=== PATIENT | female | born 1990 | race Caucasian/White ===

== ENCOUNTER 2017-09-21 18:31 | Outpatient (CLI) | payer OTHER | END 2017-09-21 22:35 | disposition left against medical advice (07) | LOC: OBT 18:31 → L-D 18:33 → OBT 22:35 | DX: O36.8130 Decreased fetal movements, third trimester, not applicable or unspecified (principal); O99.213 Obesity complicating pregnancy, third trimester; E66.01 Morbid (severe) obesity due to excess calories; Z53.21 Procedure and treatment not carried out due to patient leaving prior to being seen by health care provider; Z3A.39 39 weeks gestation of pregnancy | CPT/HCPCS: 76815; 76818 ==

== ENCOUNTER 2017-09-23 20:23 | Outpatient (CLI) | payer OTHER ==
[2017-09-23] MEDS: LACTATED RINGER'S 1,000 ML IV (22:00)
[2017-09-23] MEDS ORDERED: LACTATED RINGER'S 1,000 ML IV (23:00)
== END 2017-09-24 00:19 | disposition home or self-care (01) ==
LOC: OBT 20:23 → L-D 20:24 → NST 20:37 → L-D 20:38
DX: O62.9 Abnormality of forces of labor, unspecified (principal); Z3A.39 39 weeks gestation of pregnancy
CPT/HCPCS: 36415; 76818; 96360; 96361

== ENCOUNTER 2017-09-26 14:25 | Outpatient (CLI) | payer OTHER | END 2017-09-26 16:40 | disposition home or self-care (01) | LOC: OBT 14:25 → L-D 14:26 → OBT 16:40 | DX: O62.9 Abnormality of forces of labor, unspecified (principal); Z3A.40 40 weeks gestation of pregnancy | CPT/HCPCS: 76815; 76818 ==

== ENCOUNTER 2017-10-03 13:33 | Inpatient (IN) | payer OTHER ==
[2017-10-03] MEDS: LACTATED RINGER'S 1,000 ML IV ×2 (16:29→22:58)
[2017-10-03] MEDS ORDERED: OXYTOCIN 30 UNITS/LR 500 ML IV (16:30)
[2017-10-03] MEDS ORDERED: CARBOPROST 250 MCG INJ IM (16:30)
[2017-10-03] MEDS ORDERED: BUTORPHANOL 2 MG INJ IV ×2 (16:30)
[2017-10-03] MEDS ORDERED: MISOPROSTOL 200 MCG TAB PR (16:30)
[2017-10-03] MEDS ORDERED: METHYLERGONOVINE 0.2 MG INJ IM (16:30)
[2017-10-03] MEDS ORDERED: LIDOCAINE 1% (MPF) 30 ML INJ INJ (16:30)
[2017-10-03 17:30] LABS: ADD MAN DIFF? NO
[2017-10-03 17:32] LABS: BASOPHIL # 0.1 10^3/ul (0.0-0.1); BASOPHILS % 0.5 % (0.0-2.0); EOSINOPHILS # 0.2 10^3/ul (0.0-0.5); EOSINOPHILS % 1.8 % (0.0-7.0); HEMATOCRIT 34.6 % (37.0-47.0); HEMOGLOBIN 11.2 g/dl (12.0-16.0); LYMPHOCYTES # 1.3 10^3/ul (0.8-2.9); LYMPHOCYTES % 11.4 % (15.0-51.0); MEAN CORPUSCULAR HEMOGLOBIN 26.5 pg (29.0-33.0); MEAN CORPUSCULAR HGB CONC 32.4 g/dl (32.0-37.0); MEAN CORPUSCULAR VOLUME 81.8 fl (82.0-101.0); MEAN PLATELET VOLUME 10.1 fl (7.4-10.4); MONOCYTE # 0.8 10^3/ul (0.3-0.9); MONOCYTES % 6.7 % (0.0-11.0); NEUTROPHIL # 9.1 10^3/ul (1.6-7.5); NEUTROPHILS % 78.7 % (39.0-77.0); PLATELET COUNT 272 10^3/UL (140-415); RED BLOOD COUNT 4.23 10^6/ul (4.20-5.40); RED CELL DISTRIBUTION WIDTH 14.3 % (11.5-14.5)
[2017-10-03 17:32] LABS: WHITE BLOOD COUNT 11.6 10^3/ul (4.8-10.8)
[2017-10-03 18:09] LABS: INR 0.93; PROTIME 12.5 Sec (11.9-14.9)
[2017-10-03 18:10] LABS: PARTIAL THROMBOPLASTIN TIME 29.2 Sec (25.0-35.0)
[2017-10-03] MEDS: DINOPROSTONE 10 MG VAG SUPP VAG (19:54)
[2017-10-03] MEDS ORDERED: OXYCODONE/ACETAMINOPHEN (5/325) TAB PO (20:30)
[2017-10-03] MEDS ORDERED: IBUPROFEN 600 MG TAB PO (20:30)
[2017-10-03 20:53] LABS: HEPATITIS B SURFACE ANTIGEN NEGATIVE (NEGATIVE)
[2017-10-04] MEDS ORDERED: FENTAnyl 2MCG/ML-ROPIV 0.2% 100 ML (00:10)
[2017-10-04] MEDS: LACTATED RINGER'S 1,000 ML IV (00:53)
[2017-10-04] MEDS ORDERED: DIPHENHYDRAMINE 50 MG INJ IV (01:00)
[2017-10-04] MEDS ORDERED: NALOXONE (0.4 MG/ML) INJ IV (01:00)
[2017-10-04] MEDS: FENTAnyl 2MCG/ML-ROPIV 0.2% 100 ML BAG EPI (04:26)
[2017-10-04] MEDS: ONDANSETRON 4 MG INJ IV (04:29)
[2017-10-04] MEDS: OXYTOCIN 30 UNITS/LR 500 ML IV ×4 (06:14→21:35)
[2017-10-04] MEDS ORDERED: ACETAMINOPHEN 325 MG TAB PO ×2 (10:00→22:00)
[2017-10-04] MEDS ORDERED: HYDROCODONE/APAP (5/325) TAB PO ×4 (10:00→22:00)
[2017-10-04] MEDS ORDERED: DIBUCAINE 1% 30 GM OINT PR ×2 (10:00→22:00)
[2017-10-04] MEDS: OXYCODONE/ASPIRIN (4.88/325) TAB PO ×2 (10:51→14:05)
[2017-10-04] MEDS: LANOLIN 7 GM TUBE TOP (10:52)
[2017-10-04] MEDS: BENZOCAINE 20% 56 ML SPRAY TOP (10:52)
[2017-10-04] MEDS: WITCH HAZEL/GLYCERIN PAD PR (10:52)
[2017-10-04] MEDS: IBUPROFEN 600 MG TAB PO ×3 (11:36→23:44)
[2017-10-04] MEDS: SENNA/DOCUSATE NA (8.6MG/50MG) TAB PO (20:55)
[2017-10-04] MEDS ORDERED: ONDANSETRON 4 MG INJ IV (22:00)
[2017-10-04] MEDS ORDERED: WITCH HAZEL/GLYCERIN PAD PR (22:00)
[2017-10-04] MEDS ORDERED: BENZOCAINE 20% 56 ML SPRAY TOP (22:00)
[2017-10-04] MEDS ORDERED: OXYCODONE/ASPIRIN (4.88/325) TAB PO ×2 (22:00)
[2017-10-04] MEDS ORDERED: LANOLIN 7 GM TUBE TOP (22:00)
[2017-10-04 23:24] LABS: RAPID PLASMA REAGIN NONREACTIVE (NR)
[2017-10-05] MEDS: IBUPROFEN 600 MG TAB PO ×3 (06:25→17:39)
[2017-10-05 09:42] LABS: ADD MAN DIFF? NO
[2017-10-05 09:47] LABS: BASOPHILS % 0.3 % (0.0-2.0); EOSINOPHILS # 0.2 10^3/ul (0.0-0.5); EOSINOPHILS % 2.1 % (0.0-7.0); HEMATOCRIT 34.8 % (37.0-47.0); LYMPHOCYTES # 1.7 10^3/ul (0.8-2.9); LYMPHOCYTES % 14.7 % (15.0-51.0); MEAN CORPUSCULAR HEMOGLOBIN 26.3 pg (29.0-33.0); MEAN CORPUSCULAR HGB CONC 31.6 g/dl (32.0-37.0); MEAN CORPUSCULAR VOLUME 83.1 fl (82.0-101.0); MEAN PLATELET VOLUME 9.9 fl (7.4-10.4); MONOCYTE # 0.7 10^3/ul (0.3-0.9); NEUTROPHIL # 8.8 10^3/ul (1.6-7.5); PLATELET COUNT 251 10^3/UL (140-415); RED BLOOD COUNT 4.19 10^6/ul (4.20-5.40); RED CELL DISTRIBUTION WIDTH 14.3 % (11.5-14.5)
[2017-10-05 09:47] LABS: WHITE BLOOD COUNT 11.6 10^3/ul (4.8-10.8)
[2017-10-05] MEDS: SENNA/DOCUSATE NA (8.6MG/50MG) TAB PO ×2 (10:44→21:17)
[2017-10-06] MEDS: IBUPROFEN 600 MG TAB PO ×3 (00:20→12:11)
[2017-10-06] MEDS: MEASLES,MUMPS,RUBELLA VACCINE INJ SC* (09:00)
[2017-10-06] MEDS ORDERED: MEASLES,MUMPS,RUBELLA VACCINE INJ SC* (09:00)
[2017-10-06] MEDS: SENNA/DOCUSATE NA (8.6MG/50MG) TAB PO (09:15)
== END 2017-10-06 14:05 | disposition home or self-care (01) | DRG 775 ==
LOC: OBT 13:33 → PP1 10-04 08:59 → L-D 13:34 → OBT 15:45 → L-D 15:45
PROVIDERS: Obstetrics & Gynecology
PROC: 10E0XZZ Delivery of Products of Conception, External Approach (ICD-10-PCS; principal; 2017-10-04)
PROC: 3E033VJ Introduction of Other Hormone into Peripheral Vein, Percutaneous Approach (ICD-10-PCS; 2017-10-04)
DX: O48.0 Post-term pregnancy (principal); Z68.43 Body mass index [BMI] 50.0-59.9, adult; O99.214 Obesity complicating childbirth; Z3A.40 40 weeks gestation of pregnancy; E66.01 Morbid (severe) obesity due to excess calories; Z37.0 Single live birth
CPT/HCPCS: 62319; 76815; 76818; 85025; 85610; 85730; 86592; 86885; 86900; 86901; 87340; 99464